=== PATIENT | female | born 1960 | race Caucasian/White ===

== ENCOUNTER → 2016-09-25 | Outpatient (CLI) | payer OTHER | LOC: FIMAGING 13:03 | PROVIDERS: ATTEND Family Medicine | DX: R07.9 Chest pain, unspecified (principal); R05 Cough; E11.9 Type 2 diabetes mellitus without complications; E78.2 Mixed hyperlipidemia; F41.9 Anxiety disorder, unspecified; I10 Essential (primary) hypertension; R06.09 Other forms of dyspnea; F40.00 Agoraphobia, unspecified; K44.9 Diaphragmatic hernia without obstruction or gangrene ==

== ENCOUNTER 2017-04-02 11:00 | Emergency (ER) | payer OTHER ==
[2017-04-02 11:06] VITALS: RESP 18
[2017-04-02] MEDS ORDERED: ONDANSETRON 4 MG/2 ML VIAL IVP ONE (11:25)
[2017-04-02] MEDS ORDERED: NS 1,000 ML IV ONE (11:26)
[2017-04-02 11:39] LABS: PLATELET COUNT 244 10^3/uL (150-400)
[2017-04-02 11:45] LABS: INR 0.91 (0.83-1.16); PROTIME(PATIENT) 12.2 SEC (12.0-15.0)
--- NOTE | 2017-04-02 11:50 | EDPHY ---
General - History Smoking Status: Never smoked Narrative: I evaluated and participated in the management of the patient. I also evaluated the patient independently. My co-signature indicates that I have reviewed this chart and I agree with the findings and plan of care as documented. My personal H&P findings include: [ ] (Mike Gonzalez) CHIEF COMPLAINT: Right lower quadrant abdominal pain, fever HISTORY OF PRESENT ILLNESS: Patient complains of right lower quadrant abdominal pain, fever, mucousy stools. This has been present for several days. Nearly a week. T-max at home was 101 on Friday.. She has been taking [id number] medications with minimal improvement. This is described as a burning sensation in the right lower quadrant. Associated with stools with mucus and foul smelling. No bright red blood. No vomiting but some nausea. No chest pain. No shortness of breath. No trauma or injury. REVIEW OF SYSTEMS: Ten systems reviewed and are negative unless otherwise noted in the HPI PCP: Previously Dr. Sammi Resendez. Switching to Dr. Mcintosh SPECIALISTS: None PAST MEDICAL HISTORY: Hypertension, diabetes, cholesterol, asthma PAST SURGICAL HISTORY: No abdominal surgeries SOCIAL HISTORY: Nonsmoker. No alcohol. No drug use FAMILY HISTORY: Noncontributory EXAMINATION General Appearance: Alert, no distress Head: normocephalic, atraumatic Eyes: Pupils equal and round, no conjunctival pallor or injection ENT, Mouth: Mucous membranes moist Neck: Normal inspection, supple, non-tender Respiratory: Lungs are clear to auscultation. No wheeze, rhonchi or crackles Cardiovascular: Regular rate and rhythm. No murmur Gastrointestinal: Abdomen is soft and nondistended. There is right lower quadrant tenderness. No guarding. No rebound. No tympany rigidity. No CVA tenderness. No suprapubic pain Back: non-tender, no bony abnormalities Neurological: A&O, nonfocal, normal gait Skin: Warm and dry, no rash Extremities: Nontender, no pedal edema Psychiatric: Mood and affect normal DIFFERENTIAL DIAGNOSES: Including but not limited to appendicitis, colitis, diverticulitis, inflammatory bowel, ovarian torsion MDM: 11:40 a.m. Right lower quadrant abdominal pain fever, mucousy stool foul-smelling stools. Abdominal exam does reveal tenderness of the right lower quadrant. She has no pelvic pain. No vaginal bleeding or discharge. I have ordered CT scan abdomen pelvis. Laboratory studies are pending. IV fluid is currently infusing. She is in no acute distress with vital signs stable. 12:20 p.m. Laboratory studies thus far unremarkable. CT scan is pending at this time. 12:42 p.m. Contacted by radiologist Dr. Gruber. There is no acute finding on the CT scan. The appendix is well visualized and appears normal. The right ovary is visualized and appears normal. 1:00 p.m. I have re-evaluated the patient. I updated her regarding the negative CT scan laboratory studies. She has not yet been able to give a stool sample. 2:20 p.m. Patient has been unable to provide a stool sample. Her abdominal pain has improved. She has no fever. I do feel she is stable for discharge home. The etiology of her abdominal pain is unclear, but there is no appendicitis, no colitis, no diverticulitis. She has a benign abdominal examination. I do not feel she has an emergent scenario or surgical abdomen at this time. We discussed discharge home with prescription for a GI pathogen panel. I have written this for her to provide a sample with results to be called her primary care physician. We discussed ED precautions for worsening symptoms, fever, bloody stools or emesis. She is comfortable this plan and discharged in stable condition. (Mack Eagle) - Diagnostics Imaging Results: Imaging Impressions Abdomen CT 04/02/17 11:35 Impression: 1. Normal appendix. No evidence of enteritis or acute intra-abdominal inflammatory process. 2. Scattered sigmoid diverticula. No acute diverticulitis. 3. Normal ovaries. No ovarian cyst or free fluid. Findings discussed with Emergency Department physician sociology research assistant, Mack Eagle PA-C on April 02, 2017 at 1244 hours. - Objective Vital Signs: Initial Vital Signs Temperature (C) 99.7 F 04/02/17 11:03 Heart Rate 76 04/02/17 11:03 Respiratory Rate 18 04/02/17 11:03 Blood Pressure 145/77 H 04/02/17 11:03 O2 Sat (%) 94 04/02/17 11:03 O2 Delivery Mode Room Air Allergies/Adverse Reactions: NSAIDS (Non-Steroidal Anti-Inflamma Allergy (Verified 04/02/17 11:03) Sulfa (Sulfonamide Antibiotics) Allergy (Verified 04/02/17 11:03) trazodone Allergy (Verified 04/02/17 11:03) Home Medications: Medication Instructions Recorded Lisinopril 04/10/13 Metformin 04/10/13 Pravastatin Sodium 04/10/13 Laboratory Results: Laboratory Results 04/02/17 11:15 04/02/17 11:15 04/02/17 04/02/17 04/02/17 11:15 11:15 11:15 WBC RBC Hgb Hct MCV MCH MCHC RDW Plt Count MPV Neut % (Auto) Lymph % (Auto) [place] % (Auto) Eos % (Auto) Baso % (Auto) Nucleat RBC Rel Count Absolute Neuts (auto) Absolute Lymphs (auto) Absolute Monos (auto) Absolute Eos (auto) Absolute Basos (auto) Absolute Nucleated RBC Immature Gran % Immature Gran # PT INR APTT Sodium 141 mEq/L mEq/L (134-144) Potassium 4.4 mEq/L mEq/L (3.5-5.2) Chloride 104 mEq/L mEq/L (97-110) Carbon Dioxide 18 mEq/l L mEq/l (22-31) Anion Gap 19 mEq/L H mEq/L (8-16) BUN 11 mg/dL mg/dL (7-23) Creatinine 0.7 mg/dL mg/dL (0.6-1.0) Estimated GFR > 60 Glucose 118 mg/dL H mg/dL (70-100) Calcium 10.0 mg/dL mg/dL (8.5-10.4) Total Bilirubin 0.9 mg/dL mg/dL (0.1-1.4) Conjugated Bilirubin 0.3 mg/dL mg/dL (0.0-0.5) Unconjugated Bilirubin 0.6 mg/dL mg/dL (0.0-1.1) AST 23 IU/L IU/L (14-46) ALT 33 IU/L IU/L (9-52) Alkaline Phosphatase 63 IU/L IU/L (38-126) Total Protein 7.3 g/dL g/dL (6.3-8.2) Albumin 4.7 g/dL g/dL (3.5-5.0) Lipase 91 IU/L IU/L (23-300) Beta HCG, Qual NEGATIVE Urine Color YELLOW Urine Appearance CLEAR Urine pH 5.0 (5.0-7.5) Ur Specific [place] 1.016 (1.002-1.030) Urine Protein NEGATIVE (NEGATIVE) Urine Ketones NEGATIVE (NEGATIVE) Urine Blood NEGATIVE (NEGATIVE) Urine Nitrate NEGATIVE (NEGATIVE) Urine Bilirubin NEGATIVE (NEGATIVE) Urine Urobilinogen NEGATIVE EU EU (0.2-1.0) Ur Leukocyte Esterase NEGATIVE (NEGATIVE) Urine RBC 1-3 /hpf /hpf (0-3) Urine WBC 1-3 /hpf /hpf (0-3) Ur Epithelial Cells TRACE /lpf /lpf (NONE-1+) Urine Mucus TRACE /lpf /lpf (NONE-1+) Urine Glucose NEGATIVE (NEGATIVE) 04/02/17 04/02/17 11:15 11:15 WBC 6.65 10^3/uL 10^3/uL (3.80-9.50) RBC 4.97 10^6/uL 10^6/uL (4.18-5.33) Hgb 15.6 g/dL g/dL (12.6-16.3) Hct 46.0 % % (38.0-47.0) MCV 92.6 fL fL (81.5-99.8) MCH 31.4 pg pg (27.9-34.1) MCHC 33.9 g/dL g/dL (32.4-36.7) RDW 13.2 % % (11.5-15.2) Plt Count 244 10^3/uL 10^3/uL (150-400) MPV 9.7 fL fL (8.7-11.7) Neut % (Auto) 60.1 % % (39.3-74.2) Lymph % (Auto) 28.9 % % (15.0-45.0) [place] % (Auto) 7.1 % % (4.5-13.0) Eos % (Auto) 2.6 % % (0.6-7.6) Baso % (Auto) 0.8 % % (0.3-1.7) Nucleat RBC Rel Count 0.0 % % (0.0-0.2) Absolute Neuts (auto) 4.01 10^3/uL 10^3/uL (1.70-6.50) Absolute Lymphs (auto) 1.92 10^3/uL 10^3/uL (1.00-3.00) Absolute Monos (auto) 0.47 10^3/uL 10^3/uL (0.30-0.80) Absolute Eos (auto) 0.17 10^3/uL 10^3/uL (0.03-0.40) Absolute Basos (auto) 0.05 10^3/uL 10^3/uL (0.02-0.10) Absolute Nucleated RBC 0.00 10^3/uL 10^3/uL (0-0.01) Immature Gran % 0.5 % % (0.0-1.1) Immature Gran # 0.03 10^3/uL 10^3/uL (0.00-0.10) PT 12.2 SEC SEC (12.0-15.0) INR 0.91 (0.83-1.16) APTT 30.2 SEC SEC (23.0-38.0) Sodium Potassium Chloride Carbon Dioxide Anion Gap BUN Creatinine Estimated GFR Glucose Calcium Total Bilirubin Conjugated Bilirubin Unconjugated Bilirubin AST ALT Alkaline Phosphatase Total Protein Albumin Lipase Beta HCG, Qual Urine Color Urine Appearance Urine pH Ur Specific [place] Urine Protein Urine Ketones Urine Blood Urine Nitrate Urine Bilirubin Urine Urobilinogen Ur Leukocyte Esterase Urine RBC Urine WBC Ur Epithelial Cells Urine Mucus Urine Glucose Medications Given: Discontinued Medications Sodium Chloride (Ns) 1,000 mls @ 0 mls/hr IV ONCE ONE PRN Reason: Wide Open Stop: 04/02/17 11:27 Last Admin: 04/02/17 11:34 Dose: 1,000 mls Sodium Chloride (Ns) 500 mls @ 0 mls/hr IV EDNOW ONE; Wide Open PRN Reason: Protocol Stop: 04/02/17 13:19 Last Admin: 04/02/17 13:27 Dose: 500 mls Ondansetron HCl (Zofran) 4 mg IVP EDNOW ONE Stop: 04/02/17 11:26 Last Admin: 04/02/17 11:34 Dose: 4 mg Departure - Departure Disposition: Home, Routine, Self-Care Clinical Impression: Abdominal pain Qualifiers: Abdominal location: unspecified location Qualified Code(s): R10.9 - Unspecified abdominal pain Fever Qualifiers: Fever type: unspecified Qualified Code(s): R50.9 - Fever, unspecified Condition: Good Instructions: Acute Abdominal Pain (ED) Additional Instructions: 1. Follow up with the appointment that you have or contact the on-call physician , information provided. 2. ED precautions as discussed Referrals: Aster Anderson DO [Primary Care Provider] - As per Instructions Niesha Kong MD [Medical Doctor] - As per Instructions
[2017-04-02] MEDS ORDERED: IOPAMIDOL (ISOVUE-300) 100 ML BTL ONE (12:01)
[2017-04-02] MEDS ORDERED: NS 500 ML IV ONE (13:18)
[2017-04-02 14:39] VITALS: BP 116/78; PULSE 74; TEMP 98.6; O2SAT 95
== END 2017-04-02 14:47 | disposition home or self-care (01) ==
DX: R10.31 Right lower quadrant pain (principal); R50.9 Fever, unspecified; E86.9 Volume depletion, unspecified; I10 Essential (primary) hypertension; E11.9 Type 2 diabetes mellitus without complications; J45.909 Unspecified asthma, uncomplicated; Z79.84 Long term (current) use of oral hypoglycemic drugs
CPT/HCPCS: 96374; J2405; Q9967

== ENCOUNTER → 2017-09-03 | Outpatient (CLI) | payer OTHER | LOC: FIMAGING 16:12 | PROVIDERS: ATTEND Family Medicine | DX: R07.89 Other chest pain (principal); R05 Cough ==

== ENCOUNTER → 2018-09-25 | Outpatient (CLI) | payer OTHER | LOC: FIMAGING 11:47 | PROVIDERS: ATTEND Family Medicine | DX: M54.5 Low back pain (principal); M53.3 Sacrococcygeal disorders, not elsewhere classified ==